=== PATIENT | female | born 1960 | race Caucasian/White ===

== ENCOUNTER → 2016-08-10 | Outpatient (REF) | payer OTHER | LOC: M LAB REF 16:43 | PROVIDERS: ATTEND Nurse Practitioner Family | DX: M25.50 Pain in unspecified joint (principal) ==

== ENCOUNTER → 2016-08-21 | Outpatient (REF) | payer OTHER ==
[2016-08-21 15:53] LABS: THYROID PEROXIDASE ANTIBODY < 28.0 U/ML (<60.0)
== END ==
LOC: M LAB REF 14:51
PROVIDERS: ATTEND Nurse Practitioner Family
DX: E05.90 Thyrotoxicosis, unspecified without thyrotoxic crisis or storm (principal)

== ENCOUNTER → 2016-09-14 | Outpatient (REF) | payer OTHER | LOC: M LAB REF 16:22 | PROVIDERS: ATTEND Internal Medicine | DX: E05.90 Thyrotoxicosis, unspecified without thyrotoxic crisis or storm (principal) ==

== ENCOUNTER → 2016-09-25 | Outpatient (CLI) | payer OTHER ==
--- NOTE | 2016-09-26 12:44 | REP ---
Radionuclide thyroid uptake and scan: The study is performed after intravenous administration of 339 microcuries of I-123. Thyroid uptake and 24 hours of: The 24 are thyroid uptake is 51.49%. Normal is 25% - 35%. Thyroid scan: There is homogeneous and uniform distribution of radiotracer throughout both right and left lobes of the thyroid gland. There are no focal hot or cold zones. The right lobe measures 49.2 mm in length and the left lobe 47 mm length. The right and left lobes of the thyroid are upper normal size. Impression: Increased 24 hour thyroid uptake. Right and left lobes are upper normal size. There are no focal hot or cold zones. Signed by Daryn Abraham MD 09/26/2016 12:36 P
== END ==
LOC: M RAD 08:35
PROVIDERS: ATTEND Internal Medicine
DX: E05.90 Thyrotoxicosis, unspecified without thyrotoxic crisis or storm (principal)

== ENCOUNTER → 2016-11-10 | Outpatient (CLI) | payer OTHER ==
--- NOTE | 2016-11-10 08:07 | REP ---
Clinical: Hyperthyroidism. Technique: Real time mejía scale and color evaluation using linear high frequency transducer. Findings: The thyroid gland is normal in contour, size, and parenchymal echogenicity. No focal cystic or nodule/mass lesions are identified. Color evaluation demonstrates normal parenchymal vascularity. Right lobe measures 4.2 x 1.6 x 1.4 cm. Left lobe measures 4.5 x 1.4 x 1.5 cm. Isthmus measures 2.4 mm in width. Impression: Normal thyroid ultrasound. Signed by Sandip Viera MD 11/10/2016 07:58 A
== END ==
LOC: M RAD 07:26
PROVIDERS: ATTEND Internal Medicine
DX: E05.90 Thyrotoxicosis, unspecified without thyrotoxic crisis or storm (principal)

== ENCOUNTER → 2016-11-28 | Outpatient (CLI) | payer OTHER ==
[2016-11-28 09:22] LABS: ALBUMIN 3.7 GM/DL (3.2-5.2); ALBUMIN/GLOBULIN RATIO 1.16 (1.00-1.93); BILIRUBIN,DIRECT 0.2 MG/DL (0.0-0.2); BILIRUBIN,TOTAL 0.7 MG/DL (0.2-1.0); FREE T4 1.11 NG/DL (0.76-1.46); TOTAL PROTEIN 6.9 GM/DL (6.4-8.2)
== END ==
LOC: M LAB 07:58
PROVIDERS: ATTEND Internal Medicine
DX: E05.90 Thyrotoxicosis, unspecified without thyrotoxic crisis or storm (principal)

== ENCOUNTER → 2017-01-09 | Outpatient (REF) | payer OTHER | LOC: M LAB REF 13:53 | PROVIDERS: ATTEND Internal Medicine | DX: E05.90 Thyrotoxicosis, unspecified without thyrotoxic crisis or storm (principal) ==

== ENCOUNTER → 2017-01-30 | Outpatient (CLI) | payer OTHER ==
[2017-01-30 10:57] LABS: ALBUMIN 3.9 GM/DL (3.2-5.2); ALBUMIN/GLOBULIN RATIO 1.22 (1.00-1.93); BILIRUBIN,DIRECT 0.2 MG/DL (0.0-0.2); BILIRUBIN,TOTAL 0.7 MG/DL (0.2-1.0); FREE T4 0.95 NG/DL (0.76-1.46); TOTAL PROTEIN 7.1 GM/DL (6.4-8.2)
== END ==
LOC: M LAB 09:28
PROVIDERS: ATTEND Internal Medicine
DX: E05.90 Thyrotoxicosis, unspecified without thyrotoxic crisis or storm (principal)

== ENCOUNTER → 2017-03-13 | Outpatient (REF) | payer OTHER | LOC: M LAB REF 16:29 | PROVIDERS: ATTEND Internal Medicine | DX: E05.90 Thyrotoxicosis, unspecified without thyrotoxic crisis or storm (principal) ==

== ENCOUNTER → 2017-03-24 | Outpatient (REF) | payer OTHER | LOC: M LAB REF 14:09 | PROVIDERS: ATTEND Physician Assistant Medical | DX: N39.0 Urinary tract infection, site not specified (principal) ==

== ENCOUNTER → 2017-05-16 | Outpatient (REF) | payer OTHER | LOC: M SFHCWAGY 13:42 | PROVIDERS: ATTEND Nurse Practitioner Women's Health | DX: Z12.4 Encounter for screening for malignant neoplasm of cervix (principal) ==

== ENCOUNTER → 2017-05-16 | Outpatient (CLI) | payer OTHER ==
--- NOTE | 2017-05-16 14:39 | REPMRS ---
Patient History The patient states she had a clinical breast exam in 05/18 Patient had first child at age 30. Family history of breast cancer in 2 paternal aunts at age 50 or over, colorectal cancer in paternal aunt at age 50 or over, and colorectal cancer in paternal uncle at age 50 or over. Benign stereotatic breast biopsy of the right breast, 2007. Took hormonal contraceptives for 37 years. Digital Woman Screen Mammo: May 16, 2017 - Exam #: [id number] Bilateral CC and MLO view(s) were taken. Technologist: Juany Saavedra, Technologist Prior study comparison: April 06, 2016, digital woman screen mammo performed at [facility]. January 26, 2015, digital woman screen mammo performed at [facility]. FINDINGS: There are scattered fibroglandular densities. There has been no change in the appearance of the mammogram from the prior studies. There is a mild amount of residual fibroglandular tissue which is fairly symmetric. There is no interval development of dominant mass, architectural distortion, or clustered microcalcification suggestive of malignancy. ASSESSMENT: BI-RADS/ACR category 1 mammogram. Negative. Recommendation Routine screening mammogram in 1 year (for women over age 40). This mammogram was interpreted with the aid of an FDA-approved computer-aided dectection system. Electronically Signed By: Daryn Alcantar MD 05/16/17 [id number]
== END ==
LOC: M WHC 13:39
PROVIDERS: ATTEND Nurse Practitioner Women's Health
DX: Z12.31 Encounter for screening mammogram for malignant neoplasm of breast (principal)

== ENCOUNTER → 2017-07-09 | Outpatient (REF) | payer OTHER | LOC: M LAB REF 17:54 | DX: E05.90 Thyrotoxicosis, unspecified without thyrotoxic crisis or storm (principal) ==

== ENCOUNTER 2017-07-17 07:03 | Day surgery (SDC) | payer OTHER ==
[2017-07-17] MEDS: LR 1,000 ML IV (07:00)
[2017-07-17] MEDS ORDERED: PROPOFOL 200 MG/20 ML VIAL As Ordered ×2 (07:47)
== END 2017-07-17 09:04 | disposition home or self-care (01) ==
LOC: M OPP 07:03
DX: Z12.11 Encounter for screening for malignant neoplasm of colon (principal); K57.30 Diverticulosis of large intestine without perforation or abscess without bleeding; K64.9 Unspecified hemorrhoids; E05.90 Thyrotoxicosis, unspecified without thyrotoxic crisis or storm; Z78.0 Asymptomatic menopausal state; Z88.8 Allergy status to other drugs, medicaments and biological substances; Z79.82 Long term (current) use of aspirin; Z79.899 Other long term (current) drug therapy; Z80.0 Family history of malignant neoplasm of digestive organs; Z83.71 Family history of colonic polyps
CPT/HCPCS: 45378

== ENCOUNTER → 2017-08-28 | Outpatient (REF) | payer OTHER ==
[2017-08-28 14:07] LABS: APPEARANCE, URINE HAZY (CLEAR); BACTERIA, URINE AUTO 2+ (NEGATIVE); BILIRUBIN, URINE AUTO NEGATIVE (NEGATIVE); BLOOD, URINE BLOOD 2+ (NEGATIVE); COLOR, URINE YELLOW (YELLOW); GLUCOSE, URINE (UA) AUTO NEGATIVE (NEGATIVE); KETONE, URINE AUTO NEGATIVE (NEGATIVE); LEUKOCYTE ESTERASE, URINE AUTO 3+ (NEGATIVE); MUCUS, URINE SMALL (NEGATIVE); NITRITE, URINE AUTO NEGATIVE (NEGATIVE); PROTEIN, URINE AUTO NEGATIVE (NEGATIVE); RBC, URINE AUTO 8 /HPF (0-3); SPECIFIC GRAVITY URINE AUTO 1.008 (1.002-1.035); SQUAMOUS EPITHELIAL CELL UR AU 0 /HPF (0-6); UROBILINOGEN, URINE AUTO 0.2 mg/dL (0.0-2.0); WBC, URINE AUTO 76 /HPF (0-3); YEAST LIKE CELL URINE AUTO SMALL
== END ==
LOC: M LAB REF 13:45
DX: N39.0 Urinary tract infection, site not specified (principal)
CPT/HCPCS: 81001